=== PATIENT | female | born 1930 | race Caucasian/White ===

== ENCOUNTER 2017-06-14 14:38 | Emergency (ER) | payer MEDICARE ==
[2017-06-14] MEDS ORDERED: NS 0.9% 1000 ML* 1,000 ML IV SCH (15:15)
--- NOTE | 2017-06-14 15:28 | RAD ---
INDICATION: Left knee injury. TECHNIQUE: 4 views of the left knee were obtained. FINDINGS: There appears to be diffuse osteopenia limiting the study. The bones are normal alignment. No joint effusion or fracture is seen. Joint spaces appear maintained. IMPRESSION: NO EVIDENCE FOR FRACTURE, IF THE PATIENT'S SYMPTOMS PERSIST RECOMMEND FOLLOW-UP IMAGING.
[2017-06-14 15:39] LABS: ABS Basophils 0 10^3/ul (0-0.2); ABS Eosinophils 0.1 10^3/ul (0-0.6); ABS Lymphocytes 1.3 10^3/ul (1.0-4.8); ABS Monocytes 0.5 10^3/ul (0-0.8); ABS Neutrophils 3.5 10^3/ul (1.5-7.7); ABS Nucleated RBC 0 10^3/ul; Eosinophil % 2.4 % (0-6); Hematocrit 38 % (35-47); Hemoglobin 12.6 g/dl (12.0-16.0); Lymphocyte % 23.2 % (25-47); Mean Corpuscular HGB Conc 33 g/dl (31-36); Mean Corpuscular Hemoglobin 31 pg (27-31); Mean Corpuscular Volume 93 fL (80-97); Mean Platelet Volume 7 um3 (7.4-10.4); Nucleated Red Blood Cells % 0.1; Platelet Count 204 10^3/ul (150-450); Red Cell Distribution Width 14 % (10.5-15); White Blood Count 5.4 10^3/ul (3.5-10.8)
[2017-06-14 16:05] LABS: INR 1.09 (0.77-1.02)
--- NOTE | 2017-06-14 16:07 | RAD ---
INDICATION: Intracranial injury. Fall. COMPARISON: CT brain June 16, 2011 TECHNIQUE: Noncontrast axial source images were acquired from the skull base to the vertex. FINDINGS: Ventricles/sulci: There is cortical atrophy with compensatory dilatation of the CSF spaces. Brain parenchyma: There is no acute focal parenchymal finding, evidence of intracranial mass, or intracranial mass effect. Intracranial hemorrhage:None. Extra-axial spaces: There are no abnormal extra axial fluid collections or evidence of extra-axial mass. Calvarium: There is no calvarial fracture or other calvarial abnormality. Scalp: There is no evidence of scalp or extracalvarial soft tissue abnormality. Paranasal sinuses/mastoid: There is minor mucosal thickening in the left maxillary antrum The remaining visualized paranasal sinuses and mastoid air cells are clear. Other: None. IMPRESSION: No acute intracranial findings.
--- NOTE | 2017-06-14 16:12 | RAD ---
INDICATION: Fall. Possible neck injury. COMPARISON: Cervical spine June 20, 2012 TECHNIQUE: Noncontrast axial source images was performed from the skull base to the thoracic inlet. Coronal and and sagittal reformatted images were generated. FINDINGS: Vertebrae: There is no fracture or acute focal bony lesion. Alignment: The craniocervical junction appears normal. The cervical vertebrae are normally aligned. Central Canal: There is mild multilevel posterior spondylitic ridge formation and there is bilateral foraminal encroachment related to uncinate process hypertrophy. MR imaging is a more sensitive method to evaluate the canal and foramina. Intervertebral disc spaces: There is degenerative disc disease with narrowing most severe at C3-C4 C5-C6 and C6-C7. Brain: The visualized brain appears unremarkable. Soft tissues: The visualized soft tissue elements of the neck are unremarkable. The prevertebral soft tissues appear normal. The lung apices are clear. IMPRESSION: MULTIPLE OSTEOARTHRITIC CHANGE. NO ACUTE FINDINGS.
--- NOTE | 2017-06-14 16:24 | RAD ---
INDICATION: Traumatic injury sustained in fall. Assess for maxillofacial fracture. COMPARISON: No relevant prior exams available on the [facility] for comparison. TECHNIQUE: Multidetector CT base of the skull through mandible without contrast. Multiplanar reformation. REPORT: Negative for soft tissue hematoma. Unremarkable orbital contents. The orbital and maxillary sinus margins, zygomatic arches, lamina papyracea, base of the maxilla, pterygoid plates, and nasal bones are intact. The senile morphology mandible is intact. Normal temporal mandibular joint alignment. Mild mucosal thickening and trace fluid in the LEFT maxillary sinus. The remaining paranasal sinuses are clear. Clear mastoid air spaces. Atherosclerotic calcification at the bilateral carotid bifurcations. IMPRESSION: 1. No evidence for soft tissue hematoma or maxillofacial fracture. 2. Mild mucosal thickening and trace fluid in the LEFT maxillary sinus.
[2017-06-14 16:40] LABS: EGFR Non-African American 73.3 (>60)
[2017-06-14 17:23] VITALS: BP 174/85
[2017-06-14 17:28] LABS: Urine Appearance Cloudy; Urine Blood Negative (Negative); Urine Color Yellow; Urine Ketones Negative (Negative); Urine Protein Negative (Negative); Urine Specific Gravity 1.017 (1.010-1.030); Urine Urobilinogen Negative (Negative)
--- NOTE | 2017-06-14 18:11 | ED ---
Russ Jade Angela, scribed for Lee Mazariegos MD on 06/14/17 at 1502 . Adult Trauma - HPI Summary HPI Summary: This pt is a 86 y/o female presenting to [facility] via EMS c/o left knee pain and neck pain s/p mechanical fall. reports the pt was on her way to Dr. Mata's office for a follow up when she lost her balance. states the pt was getting out of the car to grab her walker when she lost balance and fell. Pt uses a walker to ambulate at baseline. PMHx includes Parkinson's. She is not on any anticoagulants. Pt's medications include tramadol, meclizine, stool softeners. 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 Negative: Loss of Consciousness - Allergy/Home Medications Allergies/Adverse Reactions: Allergies Allergy/AdvReac Type Severity Reaction Status Date / Time dopamine Allergy Unknown Verified 06/14/17 16:12 Reaction Details PMH/Surg Hx/FS Hx/Imm Hx Endocrine/Hematology History: Denies: Hx Diabetes Cardiovascular History: Denies: Hx Hypertension, Hx Pacemaker/ICD Respiratory History: Reports: Hx Chronic Obstructive Pulmonary Disease (COPD) GI History: Reports: Hx Gastroesophageal Reflux Disease Sensory History: Denies: Hx Hearing Aid Neurological History: Reports: Other Neuro Impairments/Disorders - LBP, Parkinson's Psychiatric History: Denies: Hx Panic Disorder - Surgical History Surgery Procedure, Year, and Place: 1942 THROAT SURGERY REMOVE CYST; 1944 APPENDIX AND PERITONITIS TREATMENT; 1997 GALLBLADDER; 2006 [facility]; 2013 SKIN GRAPH BX THROAT Infectious Disease History: Denies: Traveled Outside the [place] in Last 30 Days - Family History Known Family History: Positive: Cardiac Disease - Mother: fatal [place]. Brother: bypass surgery Negative: Diabetes Family History: Father: throat [place] - Social History Alcohol Use: None Substance Use Type: Reports: None Smoking Status (MU): Never Smoked Tobacco Review of Systems Negative: Fever Musculoskeletal: Other - left knee pain, neck pain Positive: Bruising - under left eye All Other Systems Reviewed And Are Negative: Yes Physical Exam - Summary Physical Exam Summary: General: well-appearing, no pain distress Skin: warm, color reflects adequate perfusion, dry Head: normal Eyes: EOMI, SHAWNA ENT: normal Neck: supple, nontender Respiratory: CTA, breath sounds present Cardiovascular: RRR Abdomen: soft, nontender Bowel: present Musculoskeletal: strength/ROM intact. Skin tear on left knee. Neurological: normal, sensory/motor intact, A&O x3 Psychological: affect/mood appropriate Triage Information Reviewed: Yes Vital Signs On Initial Exam: Initial Vitals BP 179/58 06/14/17 15:04 Vital Signs Reviewed: Yes - Lida Coma Scale Best Eye Response: 4 - Spontaneous Best Motor Response: 6 - Obeys Commands Best Verbal Response: 5 - Oriented Coma Scale Total: 15 Diagnostics - Vital Signs Vital Signs Temp Pulse Resp BP Pulse Ox 06/14/17 17:20 97.4 F 65 20 174/85 94 06/14/17 17:00 58 100 06/14/17 16:02 59 99 06/14/17 15:37 99 06/14/17 15:11 42 88 06/14/17 15:06 98.3 F 50 16 178/60 96 06/14/17 15:04 179/58 - Laboratory Lab Results: Lab Results 06/14/17 06/14/17 06/14/17 Range/Units 15:28 15:28 15:28 WBC 5.4 (3.5-10.8) 10^3/ul RBC 4.10 (4.0-5.4) 10^6/ul Hgb 12.6 (12.0-16.0) g/dl Hct 38 (35-47) % MCV 93 (80-97) fL MCH 31 (27-31) pg MCHC 33 (31-36) g/dl RDW 14 (10.5-15) % Plt Count 204 (150-450) 10^3/ul MPV 7 L (7.4-10.4) um3 Neut % (Auto) 64.1 (38-83) % Lymph % (Auto) 23.2 L (25-47) % Crockett % (Auto) 9.5 H (0-7) % Eos % (Auto) 2.4 (0-6) % Baso % (Auto) 0.8 (0-2) % Absolute Neuts (auto) 3.5 (1.5-7.7) 10^3/ul Absolute Lymphs (auto) 1.3 (1.0-4.8) 10^3/ul Absolute Monos (auto) 0.5 (0-0.8) 10^3/ul Absolute Eos (auto) 0.1 (0-0.6) 10^3/ul Absolute Basos (auto) 0 (0-0.2) 10^3/ul Absolute Nucleated RBC 0 10^3/ul Nucleated RBC % 0.1 INR (Anticoag Therapy) 1.09 H (0.77-1.02) APTT 35.4 (26.0-36.3) seconds Sodium 139 (133-145) mmol/L Potassium 4.2 (3.5-5.0) mmol/L Chloride 103 (101-111) mmol/L Carbon Dioxide 30 (22-32) mmol/L Anion Gap 6 (2-11) mmol/L BUN 17 (6-24) mg/dL Creatinine 0.75 (0.51-0.95) mg/dL Est GFR ( Amer) 94.2 (>60) Est GFR (Non-Af Amer) 73.3 (>60) BUN/Creatinine Ratio 22.7 H (8-20) Glucose 108 H (70-100) mg/dL Calcium 9.5 (8.6-10.3) mg/dL Total Bilirubin 0.40 (0.2-1.0) mg/dL AST 14 (13-39) U/L ALT 9 (7-52) U/L Alkaline Phosphatase 69 (34-104) U/L C-Reactive Protein < 1.00 (< 5.00) mg/L Total Protein 7.3 (6.4-8.9) g/dL Albumin 4.1 (3.2-5.2) g/dL Globulin 3.2 (2-4) g/dL Albumin/Globulin Ratio 1.3 (1-3) Urine Color Urine Appearance Urine pH (5-9) Ur Specific Axis (1.010-1.030) Urine Protein (Negative) Urine Ketones (Negative) Urine Blood (Negative) Urine Nitrate (Negative) Urine Bilirubin (Negative) Urine Urobilinogen (Negative) Ur Leukocyte Esterase (Negative) Urine WBC (Auto) (Absent) Urine RBC (Auto) (Absent) Ur Squamous Epith Cells (Absent) Urine Bacteria (Absent) Urine Glucose (Negative) Urine Ascorbic Acid (Negative) 06/14/17 Range/Units 16:50 WBC (3.5-10.8) 10^3/ul RBC (4.0-5.4) 10^6/ul Hgb (12.0-16.0) g/dl Hct (35-47) % MCV (80-97) fL MCH (27-31) pg MCHC (31-36) g/dl RDW (10.5-15) % Plt Count (150-450) 10^3/ul MPV (7.4-10.4) um3 Neut % (Auto) (38-83) % Lymph % (Auto) (25-47) % Crockett % (Auto) (0-7) % Eos % (Auto) (0-6) % Baso % (Auto) (0-2) % Absolute Neuts (auto) (1.5-7.7) 10^3/ul Absolute Lymphs (auto) (1.0-4.8) 10^3/ul Absolute Monos (auto) (0-0.8) 10^3/ul Absolute Eos (auto) (0-0.6) 10^3/ul Absolute Basos (auto) (0-0.2) 10^3/ul Absolute Nucleated RBC 10^3/ul Nucleated RBC % INR (Anticoag Therapy) (0.77-1.02) APTT (26.0-36.3) seconds Sodium (133-145) mmol/L Potassium (3.5-5.0) mmol/L Chloride (101-111) mmol/L Carbon Dioxide (22-32) mmol/L Anion Gap (2-11) mmol/L BUN (6-24) mg/dL Creatinine (0.51-0.95) mg/dL Est GFR ( Amer) (>60) Est GFR (Non-Af Amer) (>60) BUN/Creatinine Ratio (8-20) Glucose (70-100) mg/dL Calcium (8.6-10.3) mg/dL Total Bilirubin (0.2-1.0) mg/dL AST (13-39) U/L ALT (7-52) U/L Alkaline Phosphatase (34-104) U/L C-Reactive Protein (< 5.00) mg/L Total Protein (6.4-8.9) g/dL Albumin (3.2-5.2) g/dL Globulin (2-4) g/dL Albumin/Globulin Ratio (1-3) Urine Color Yellow Urine Appearance Cloudy Urine pH 6.0 (5-9) Ur Specific Axis 1.017 (1.010-1.030) Urine Protein Negative (Negative) Urine Ketones Negative (Negative) Urine Blood Negative (Negative) Urine Nitrate Positive A (Negative) Urine Bilirubin Negative (Negative) Urine Urobilinogen Negative (Negative) Ur Leukocyte Esterase Trace A (Negative) Urine WBC (Auto) 1+(6-10/hpf) A (Absent) Urine RBC (Auto) Trace(0-2/hpf) (Absent) Ur Squamous Epith Cells Present A (Absent) Urine Bacteria 3+ A (Absent) Urine Glucose Negative (Negative) Urine Ascorbic Acid * A (Negative) Result Diagrams: 06/14/17 15:28 06/14/17 15:28 Lab Statement: Any lab studies that have been ordered have been reviewed, and results considered in the medical decision making process. - Radiology Left knee XR Xray Interpretation: No Acute Changes - IMPRESSION: No evidence for fracture, if the patient's symptoms persist recommend follow-up imaging. Dr. Mazariegos has reviewed this radiology report. Radiology Interpretation Completed By: Radiologist - CT Brain CT CT Interpretation: No Acute Changes - IMPRESSION: No acute intracranial findings. Dr. Mazariegos has reviewed this radiology report. CT Interpretation Completed By: Radiologist Maxillofacial CT CT Interpretation: No Acute Changes - IMPRESSION: 1. No evidence for soft tissue hematoma or maxillofacial fracture. 2. Mild mucosal thickening and trace fluid in the LEFT maxillary sinus. Dr. Mazariegos has reviewed this radiology report. CT Interpretation Completed By: Radiologist Cervical spine CT CT Interpretation: No Acute Changes - IMPRESSION: Multiple osteoarthritic change. No acute findings. Dr. Mazariegos has reviewed this radiology report. CT Interpretation Completed By: Radiologist - EKG 15:16 Cardiac Rate: NL EKG Rhythm: Sinus Rhythm - at [address] Segment: Normal Ectopy: None EKG Interpretation: LVH. Re-Evaluation - Re-Evaluation First Eval Re-Evaluation Time: 17:02 Comment: I reviewed the lab and imaging results with the pt and . Pt will be discharged home. Adult Trauma Course/Dx - Course Course Of Treatment: Left knee XR is negative for fracture or dislocation. Brain CT is negative. Cervical spine CT is negative. Maxillofacial CT is negative for fracture. Medications reviewed. Allergies noted. BP noted and advised to follow up with PCP. NO SX OF UTI. WILL AWAIT CULTURES TO DETERMINE TREATMENT. DISCUSSED RESULTS WITH PATIENT AND HER FAMILY. F/U PMD; RETURN IF WORSE. - Diagnoses Provider Diagnoses: Head injury, Cervical strain, Contusion of knee, left, Skin tear of left lower leg without complication Discharge - Discharge Plan Condition: Stable Disposition: HOME Patient Education Materials: Cervical Strain (ED), Head Injury (ED), Knee Pain (ED), Skin Tear (ED) Referrals: Tito Jay MD [Primary Care Provider] - Additional Instructions: FOLLOW UP WITH YOUR DOCTOR. RETURN TO THE EMERGENCY DEPARTMENT FOR ANY WORSENING OF YOUR CONDITION OR QUESTIONS OR CONCERNS. YOUR BLOOD PRESSURE WAS ELEVATED TODAY; FOLLOW UP WITH YOUR PRIMARY CARE DOCTOR WITHIN ONE WEEK. The documentation as recorded by the Russ muñoz Angela accurately reflects the service I personally performed and the decisions made by me, Lee Mazarigeos MD.
== END 2017-06-14 17:20 | disposition home or self-care (01) ==
LOC: ED 14:38
DX: S09.90XA Unspecified injury of head, initial encounter (principal); S80.02XA Contusion of left knee, initial encounter; S00.12XA Contusion of left eyelid and periocular area, initial encounter; S81.812A Laceration without foreign body, left lower leg, initial encounter; S16.1XXA Strain of muscle, fascia and tendon at neck level, initial encounter; W19.XXXA Unspecified fall, initial encounter; Y92.9 Unspecified place or not applicable
CPT/HCPCS: 36415; 70450; 70486; 72125; 80053; 81003; 81015; 85025; 85610; 85730; 86140; 87077; 87086; 87186; 93005; 99282

== ENCOUNTER 2017-08-24 09:52 | Inpatient (IN) | payer MEDICARE ==
--- NOTE | 2017-08-24 11:38 | RAD ---
INDICATION: Fall. Left hip pain COMPARISON: Left hip April 28, 2013 TECHNIQUE: An AP view of the pelvis and AP views of the hip in neutral and abducted position were obtained FINDINGS: Bones: There is a mildly distracted intertrochanteric fracture of the left femur. No other acute bony findings are evident. Joint spaces: The hips articulate normally. The joint spaces are preserved. SI joints/symphysis: The SI joints and symphysis are intact. Other: None IMPRESSION: INTRATROCHANTERIC FRACTURE LEFT FEMUR
--- NOTE | 2017-08-24 11:40 | RAD ---
INDICATION: Left rib pain COMPARISON: None TECHNIQUE: Multiple views of the ribs were obtained. FINDINGS: Bones: There is osteopenia. There is radiographically apparent rib fracture. LUNGS: The lungs are clear. There is no pneumothorax. Pleural spaces: There is no evidence of hemothorax. Other: None IMPRESSION: NO ACUTE RIB FRACTURE IS SEEN.
--- NOTE | 2017-08-24 11:41 | RAD ---
INDICATION: Left elbow pain COMPARISON: None TECHNIQUE: AP, lateral, and oblique views were obtained. FINDINGS: There is osteopenia. There is no acute fracture. The elbow articulates normally. IMPRESSION: NO ACUTE FRACTURE.
--- NOTE | 2017-08-24 11:42 | RAD ---
INDICATION: Fall COMPARISON: Chest x-ray February 01, 2017 TECHNIQUE: PA and lateral dual-energy views were obtained. FINDINGS: Bones/Soft Tissues: There are no acute bony findings. There is osteopenia Cardiomediastinal: The cardiomediastinal silhouette is normal. Lungs: There are no infiltrates. There is hyperinflation with chronic interstitial change Pleura: There are no pleural effusions. Other: None IMPRESSION: HYPERINFLATION WITH CHRONIC INTERSTITIAL CHANGE.
[2017-08-24 12:29] LABS: EGFR Non-African American 74.2 (>60)
[2017-08-24 12:50] LABS: ABS Basophils 0 10^3/ul (0-0.2); ABS Eosinophils 0 10^3/ul (0-0.6); ABS Lymphocytes 0.9 10^3/ul (1.0-4.8); ABS Monocytes 0.9 10^3/ul (0-0.8); ABS Nucleated RBC 0 10^3/ul; Eosinophil % 0.1 % (0-6); Hematocrit 34 % (35-47); Hemoglobin 11.3 g/dl (12.0-16.0); Mean Corpuscular HGB Conc 33 g/dl (31-36); Mean Corpuscular Hemoglobin 31 pg (27-31); Mean Corpuscular Volume 94 fL (80-97); Mean Platelet Volume 7.8 um3 (7.4-10.4); Nucleated Red Blood Cells % 0; Platelet Count 187 10^3/ul (150-450); Red Blood Count 3.67 10^6/ul (4.0-5.4); Red Cell Distribution Width 14 % (10.5-15); White Blood Count 9.7 10^3/ul (3.5-10.8)
[2017-08-24] MEDS ORDERED: Morphine VIAL* 4 MG/ML VIAL (1 ml vial) IV ONE (13:14)
[2017-08-24] MEDS ORDERED: Enoxaparin(*) 40 MG/0.4 ML SYR SUBCUT SCH (14:00)
[2017-08-24] MEDS: Meclizine TAB* 12.5 MG PO SCH ×2 (14:55→20:02)
[2017-08-24] MEDS: Sertraline* 25 MG TAB PO SCH ×2 (14:55→20:02)
[2017-08-24] MEDS: LORazepam INJ* 2 MG/ML 1 ML VIAL IV PUSH PRN (15:03)
[2017-08-24] MEDS: Ropinirole TAB* 0.5 MG TAB PO SCH ×2 (16:33→21:52)
[2017-08-24] MEDS: NS 0.9% 1000 ML* 1,000 ML IV SCH ×2 (16:43→21:52)
[2017-08-24 17:06] LABS: Urine Appearance Cloudy; Urine Blood Negative (Negative); Urine Color Yellow; Urine Ketones Negative (Negative); Urine Protein 1+(30 mg/dL) (Negative); Urine Specific Gravity 1.018 (1.010-1.030); Urine Urobilinogen Negative (Negative)
--- NOTE | 2017-08-24 19:58 | HP ---
CC: Tito Jay MD * ADMISSION HISTORY AND PHYSICAL: DATE OF ADMISSION: 08/24/17 PRIMARY CARE PHYSICIAN: Tito Jay MD ATTENDING PHYSICIAN: Lisa Rosado MD * (DICTATED BY KRISTINA GARCIA NP) CHIEF COMPLAINT: Fall with hip pain and inability to ambulate and transfer. HISTORY OF PRESENT ILLNESS: This is an 87-year-old female patient with a longstanding history of dementia and parkinsonism. Per the family, the patient' s is her primary care provider, lives alone at home with her and provides most of her assistive services. The patient's family states that she can transfer with assistance only. She is a 1 person assist and normally is seated in a chair, lying in the bed and does use a motorized stair lift as well. The patient is not usually verbal at baseline. Does have some purposeless movements also at baseline; however, the patient can sometimes make her needs known and apparently in the middle of the night the patient had to get up to go to the bathroom and try to get up by herself and step on the floor. She was evaluated by EMS, but at that time they did not see any overt angulation or issues. They were told to call EMS again if there are any further problems or see her primary care doctor and in the morning when the patient woke up she was not able to be moved at all and was in a significant amount of pain, was transferred to the emergency department for evaluation. ER imaging shows left intertrochanteric fracture. Rest of her workup is essentially negative. PAST MEDICAL HISTORY: Significant for dementia, Parkinson's disease, GERD, and COPD. PAST SURGICAL HISTORY: Significant for bowel surgery, excision of a lesion on the throat, cholecystectomy, and had as a child appendicitis with peritonitis. MEDICATIONS AT HOME: Include: 1. Biotin 1 mg daily. 2. Meclizine 12.5 mg 3 times a day. 3. Singulair 10 mg daily. 4. Multivitamin 1 tablet daily. 5. Ropinirole 0.5 mg 3 times a day. 6. Sertraline 25 mg 3 times a day. 7. Venlafaxine 75 mg in the morning. 8. PreserVision AREDS2 softgels 1 cap p.o. daily. 9. Tramadol 50 mg q.6 hours as needed. ALLERGIES: The patient has allergy to DOPAMINE. Family is not able to articulate what the allergy is. FAMILY HISTORY: Both parents with cardiac disease and a brother with coronary artery bypass graft. SOCIAL HISTORY: The patient does not smoke, does not drink alcohol, and there is no illicit drug use. Again, her , Mr. Ascencio, is her next of kin and her healthcare proxy. REVIEW OF SYSTEMS: Unable to obtain secondary to condition, although the patient is grimacing with any kind of pressure to the left hip. PHYSICAL EXAMINATION GENERAL: The patient is alert, very frail and thin looking; however, she is otherwise healthy looking. She appears mildly agitated, but no serious distress. VITAL SIGNS: Blood pressure 132/79, heart rate 88, respiratory rate 14, room air saturation 93%, temperature is 97.2. HEENT: The patient is atraumatic, normocephalic. PERRLA with nonicteric sclerae. Dentition: The patient is edentulous. She has full upper and lower dentures, which are not present. Oral mucosa is moist. Tongue is midline. NECK: Supple, nontender. No JVD noted. No carotid bruits auscultated. LUNGS: Clear bilaterally to auscultation with no wheezing, rhonchi, or rales. CARDIOVASCULAR: S1 and S2 present. No murmurs, gallops, or rubs noted. Rate and rhythm are regular. ABDOMEN: Soft, nontender, and nondistended. No organomegaly noted and positive bowel sounds in all 4 quadrants. MUSCULOSKELETAL: There is no clubbing, no cyanosis, no edema. She does not have any bruising or ecchymosis noted. She is tender up across the left hip and into the groin. She has +2 distal pulses palpable and intact. NEUROLOGIC: She is confused at baseline. Has difficulty following commands and is exhibiting some purposeless movements. SKIN: Warm, dry, intact. No bruises, lesions, sclerosis noted. DIAGNOSTIC STUDIES/LAB DATA: WBC is 9.7, RBC is 3.67, hemoglobin 11.3, hematocrit 34, platelets 187,000. Sodium 138, potassium 4.2, chloride 101, CO2 of 31, BUN 17, creatinine 0.74, GFR 74.2, glucose 126, calcium 8.8. AST 18, ALT 17, alk phos 66. CRP is 1.82. Total creatine kinase 89, protein 6.6, albumin 3.9, globulin 2.7. Imaging: Chest x-ray shows hyperinflation with no acute cardiopulmonary disease. X-rays of the elbows and ribs show no acute fracture. Imaging of the hip and pelvis though reveals an intertrochanteric fracture of the left femur. IMPRESSION: This is an 87-year-old female patient with a history of dementia and Parkinson disease, who per the family has had considerable decline over the past 6 months and has had several falls, who presents to emergency department today status post fall with a left intertrochanteric fracture. PLAN: The patient has been admitted to medical service. We are being requested to provide medical clearance and guidance regarding potential surgical plan of care. DIAGNOSES: 1. Mechanical fall with left intertrochanteric hip fracture. Dr. Sharif from the orthopedic service has already been consulted. If the patient can be cleared for surgery, she may likely go tomorrow. For DVT prophylaxis, we will place the patient on Lovenox. Pain control with morphine q.4 hours as needed. 2. For her Parkinson's and dementia, we will continue her regularly scheduled medications and her SSRI and SNRI. We will also give her low dose Ativan q.6 hours as needed for any additional agitation as the patient is outside of her environment and seems to be becoming increasingly anxious. 3. For her history of chronic obstructive pulmonary disease, she is on Singulair daily. Her lungs sound clear essentially at this time. I do not feel that she needs albuterol or nebulizer treatments at this time; however, I am not sure how well she would be able to participate in incentive spirometry pre and postoperatively. Her urinalysis in the past showed urine culture with Citrobacter that was treated. Urine culture is currently pending. At this point, we would like to see what Orthopedics is thinking in terms of surgical plan of care. Her risk factors because of her age and general debility I feel are higher risks. Even though she has no documented history of cardiac disease, she does have a strong family history. At this point, we will do an echocardiogram to assess left ventricular function and see if there are any anomalous issues or acute pathology noted there. We will have a discussion with Orthopedics after the echo is completed. Her EKG today is no different than her EKG in May, again showing some LVH, but otherwise sinus rhythm with no ST segment elevations and no further ectopy noted, does not appear to be any ischemia. I had an extensive conversation with the family regarding outcomes of the surgery because the patient generally does not ambulate unassisted at baseline. Surgery at this point would be for pain. I do not know that we will be able to get her ambulating better after the surgery considering her Parkinson's and her inability to ambulate unassisted already exists; however, given pain and also the fact that the plan was in speaking with the daughter that her parents were supposed to be moving to [place], [place], in the next 3 weeks. Again, I think it remains to be seen how well the patient would heal from this and whether they would be able to fly to [place] next month as they had originally planned. This is something that I think Case Management can also assist the family with as we work through this process. The rest of the patient's course will be determined by further diagnostics, laboratories, and any other input from other providers warranted during this admission. Again, after evaluating the full cardiac workup, we will determine her CV risk for surgery if the family wishes to proceed at that time. KRISTINA GARCIA, NAVNEET [id number]/CPS #: [id number] DOMINIQUE
[2017-08-24] MEDS: Morphine VIAL* 4 MG/ML VIAL (1 ml vial) IV PRN (20:02)
[2017-08-25] MEDS: Morphine VIAL* 4 MG/ML VIAL (1 ml vial) IV PRN (02:42)
[2017-08-25] MEDS: LORazepam INJ* 2 MG/ML 1 ML VIAL IV PUSH PRN (05:14)
[2017-08-25 05:30] LABS: INR 1.26 (0.77-1.02)
[2017-08-25] MEDS ORDERED: Famotidine IV* 10 MG/ML 2 ML (20 mg) IV ONE (06:00)
[2017-08-25] MEDS: Multivitamins/Minerals TAB PO SCH (08:21)
[2017-08-25] MEDS: Ropinirole TAB* 0.5 MG TAB PO SCH ×3 (08:21→22:18)
[2017-08-25] MEDS: Venlafaxine EXT RELEASE CAP* 75 MG PO SCH (08:21)
[2017-08-25] MEDS: Meclizine TAB* 12.5 MG PO SCH ×3 (08:21→22:18)
[2017-08-25] MEDS: Montelukast Sodium TAB* 10 MG PO SCH (08:21)
[2017-08-25] MEDS: Sertraline* 25 MG TAB PO SCH ×3 (08:21→22:18)
--- NOTE | 2017-08-25 08:58 | PN ---
Hospitalist Progress Note Date of Service: 08/25/[address] hSarif of orthopedic surgery and mentioned he would like to take patient to the OR and requests if pt's pre-operative eval can be expedited. Saw pt and a ybarra note will be dictated later. Unfortunately, has PD dementia and does not speak Danish with no family at bedside. H&P, EKG, labs, and imaging reviewed and pt has a calculated RCRI =1 for a high risk surgical procedure. There is no active medical issues at this time. However, given significant family history of cardiac disease, an echocardiogram was ordered. Have tried to page Dr. Meza, however, spoke with Dr. Sharif to speak with her directly given time limitations as to planned surgery. Will defer.
--- NOTE | 2017-08-25 10:06 | ECHO ---
Patient: [facility] Rec#: [id number] : 1930 Date: 08/25/2017 Age: 87y Height: 167.6 cm / 66.0 in Weight: 49.9 kg / 110.0 lbs Sex: F BSA: 1.6 Room#: 338 Admit Date#: 08/24/2017 Type: Inpatient Referring: Annalee Appiah Reading: Irma Meza MD Jury Consultant: Lisa Sullivan RN RDCS CC: Tito Jay MD Transthoracic Echocardiogram Indication: Abnormal EKG BP: 140/57 HR: 82 Rhythm: NSR Findings History: Parkinson's disease, current left hip fracture Technical Comments: The study quality is fair. The study was technically limited due to the patient's inability to lay in the left lateral decubitus position. Completed at 0835. Left Ventricle: The left ventricular chamber size is normal. There is increased basal septal hypertrophy noted without evidence of an increased gradient across the left ventricular outflow tract. Mild septal dysychrony. Diastolic jet into the RV at the level of the membranous septum seen on 4 chamber view but not confirmed on short axis view (possible small VSD), no evidence clinically significant. There is normal left ventricular systolic function. The estimated ejection fraction is 55-60%. Abnormal left ventricular diastolic filling is observed, consistent with impaired relaxation. Left Atrium: The left atrial chamber size is normal. Right Ventricle: The right ventricular chamber size and systolic function are within normal limits. Right Atrium: The right atrial cavity size is normal. Aortic Valve: The aortic valve is trileaflet. The aortic valve leaflets are mildly thickened. There is aortic annular calcification. There is mild to moderate aortic regurgitation. There is no evidence of aortic stenosis. Mitral Valve: The mitral valve leaflets are mildly thickened. There is trace to mild mitral regurgitation. There is no evidence of mitral stenosis. Tricuspid Valve: The tricuspid valve leaflets are normal. There is mild to moderate tricuspid regurgitation. The right ventricular systolic pressure is estimated at 44 mmHg. There is evidence of mild to moderate pulmonary hypertension. There is no tricuspid stenosis. Pulmonic Valve: The pulmonic valve appears normal. There is trace to mild pulmonic regurgitation. There is no pulmonic stenosis. Pericardium: There is no significant pericardial effusion. Aorta: There is no dilatation of the ascending aorta. There is no dilatation of the aortic arch. There is no dilation of the aortic root. Pulmonary Artery: The main pulmonary artery appears normal. Venous: The inferior vena cava is not visualized. Conclusions The left ventricular chamber size is normal. Basilar septal hypertrophy, mild dysynchrony. The estimated ejection fraction is 55-60%. Abnormal left ventricular diastolic filling is observed, consistent with impaired relaxation. The right ventricular chamber size and systolic function are within normal limits. The aortic valve is trileaflet, the leaflets are mildly thickened. There is mild to moderate aortic regurgitation, central jet. There is trace to mild mitral regurgitation. There is mild to moderate tricuspid regurgitation. There is evidence of mild to moderate pulmonary hypertension at 44 mmHg. No prior echo to compare. Measurements Name Value Normal Range RVDdMajor (2D) 2.7 cm (2.2 - 4.4) RAd ISD 4CH 3.8 cm (3.4 - 4.9) RA (A4C)W 3.5 cm (2.9 - 4.6) IVSd (2D) 0.9 cm (0.6 - 1) LVPWd (2D) 0.9 cm (0.6 - 1) LVIDd (2D) 3.9 cm (3.6 - 5.4) LVIDs (2D) 2.7 cm - LV FS (2D) 31 % (25 - 45) Aortic Annulus 2.1 cm (1.4 - 2.6) Ao root diameter (2D) 3.2 cm (2.1 - 3.5) Ascending Ao 3.2 cm (2.1 - 3.4) Aortic arch 2.5 cm (1.8 - 3.4) LA dimension (AP) 2D 2.9 cm (2.3 - 3.8) LAd ISD 4CH 4.2 cm (2.9 - 5.3) LA ISD 4CH W 3.5 cm (2.5 - 4.5) Name Value Normal Range LA ESV SP 4CH (A/L) 51 ml - LA ESV SP 2CH (A/L) 27 ml - LA ESV BP (A/L) 40 ml - LA ESV BP (A/L) index 26 ml/m2 - LA ESV SP 4CH (MOD) 48 ml - LA ESV SP 2CH (MOD) 24 ml - Name Value Normal Range MV E-wave Vmax 0.73 m/sec - MV deceleration time 312 msec - MV A-wave Vmax 1.1 m/sec - MV E:A ratio 0.64 ratio - LV septal e' Vmax 0.07 m/sec - LV lateral e' Vmax 0.08 m/sec - LV E:e' septal ratio 10.4 ratio - LV E:e' lateral ratio 9.1 ratio - Name Value Normal Range AV Vmax 1.6 m/sec - AV VTI 32.9 cm - AV peak gradient 9.8 mmHg - AV mean gradient 6.4 mmHg - LVOT Vmax 1.1 m/sec - LVOT VTI 23.4 cm - LVOT peak gradient 5.1 mmHg - LVOT mean gradient 3.1 mmHg - AR PHT 362 msec - DREA Vmax 0.48 m/sec - Name Value Normal Range TR Vmax 3 m/sec - TR peak gradient 36 mmHg - RAP 8 mmHg - RVSP 44 mmHg - Name Value Normal Range PV Vmax 0.75 m/sec -
[2017-08-25] MEDS ORDERED: ceFAZolin 2 GM PREMIX (*) 2 GM/50 ML BAG IVPB ONE (10:35)
[2017-08-25] MEDS ORDERED: KETAMINE HCL* 50 MG/ML 10 ML VIAL ONE (11:03)
[2017-08-25] MEDS ORDERED: Midazolam* 1 MG/ML 2 ML VIAL (2 MG) ONE (11:10)
[2017-08-25] MEDS ORDERED: fentaNYL* 50 MCG/ML 2 ML VIAL (100 MCG VIAL) ONE ×2 (11:15→12:49)
[2017-08-25] MEDS ORDERED: Bupivacaine 0.5% SDV PF* 30ML VIAL ONE (11:39)
[2017-08-25] MEDS ORDERED: DiMENhydriNATE IV* 50 MG/ML VIAL ONE (11:54)
[2017-08-25] MEDS ORDERED: Ketorolac INJ* 30 MG/ML 1 ML VIAL ONE (11:54)
[2017-08-25] MEDS ORDERED: Propofol* 10 MG/ML 20 ML BTL IV PUSH ONE (11:54)
[2017-08-25] MEDS ORDERED: EPHEDrine (Pressors)* 50 MG/ML VIAL ONE (11:54)
[2017-08-25] MEDS ORDERED: Dexamethasone IV* 4 MG/ML 1 ML (4 MG) ONE (11:54)
[2017-08-25] MEDS ORDERED: Lidocaine 2% PF * 5 ML VIAL ONE (11:54)
[2017-08-25] MEDS ORDERED: Ondansetron INJ* 2 MG/ML VIAL IV PRN (13:40)
[2017-08-25] MEDS ORDERED: HYDROmorphone INJ* 1 MG/ML CARPUJECT SYRINGE IV PRN (13:40)
[2017-08-25] MEDS ORDERED: Acetaminophen IV 1GM/100ML * 10 MG/ML VIAL IVPB ONE (13:40)
[2017-08-25] MEDS ORDERED: Naloxone* 0.4 MG/ML 1 ML VIAL IV PRN (13:40)
[2017-08-25] MEDS ORDERED: Acetaminophen IV 1GM/100ML * 100 ML ONE (14:12)
--- NOTE | 2017-08-25 15:31 | RAD ---
INDICATION: Traumatic left hip fracture operative reduction and internal fixation. COMPARISON: Correlation is made with a prior x-ray study of the left hip from August 24, 2017. TECHNIQUE: 73.1 seconds of intermitted fluoroscopic were provided and 4 spot images of the left hip were obtained in the operating room. FINDINGS: The films demonstrate placement of a femoral head nail and sliding sideplate transfixed with multiple screws spanning the intertrochanteric fracture of the left femur. IMPRESSION: INTRAOPERATIVE CONTROL FILMS. CPT II Codes: G9500
--- NOTE | 2017-08-25 15:44 | PN ---
Hospitalist Progress Note Date of Service: 08/25/17 Pt seen and examined. Meds and labs reviewed. Pt was seen and examined earlier this AM. Please see my earlier note dated today for details. ROS: Denied ELIAS/dizziness, F/C, N/V, CP, SOB, increased cough, sputum production , abd pain, diarrhea, constipation, dysuria, myalgias, arthralgias, throat pain , and new skin lesions. The rest of the 14 point ROS are unremarkable. PHYSICAL EXAM: GEN APPEARANCE: Awake, not oriented, poor command of [place] language HEENT: NC/AT, PERRLA, moist oral mucosa, (-) throat erythema NECK: Soft, supple, (-) cervical LAD, (-)JVD HEART: S1S2 WNL, RRR, No MRG CHEST: CTA, BL, GAE, No W/R/R ABD: Soft, ND/NT, NABS 4x Q EXT: No C/C/E SKIN: Warm to touch PSYCH: No active psychosis, hallucinations, depression, SI/HI ASSESSMENT AND PLAN: #Mechanical fall w/left intertrochanteric femoral fracture: -Spoke with Dr. Meza earlier upon updating Dr. Sharif and per Dr. Meza at that time, there are no findings in echocardiogram that would preclude planned surgery by family and orthopedics similar to the impression previously detailed based on physical exam and limited history -2D echo reveals: Impaired relaxation of left ventricle with EF of 55-60% -Final pre-op eval discussed with family and Dr. Sharif: Pt has low cardiac risk, with RCRI =1 for a high risk surgical procedure #PD Dementia: -Will continue watchful waiting -Not currently agitated nor behavioral #COPD, not in acute exacerbation: -Continue watchful waiting -Continue Montelukast #DVTp: -Decreased dose of Lovenox due to advanced age #Dispo: -For PT eval
[2017-08-25] MEDS: Enoxaparin(*) 30 MG/0.3 ML SYR SUBCUT SCH (16:15)
[2017-08-25] MEDS ORDERED: Ondansetron 40 MG VIAL* 2 MG/ML 20 ML VIAL IV PRN (16:38)
[2017-08-25 17:57] LABS: ABS Basophils 0 10^3/ul (0-0.2); ABS Eosinophils 0 10^3/ul (0-0.6); ABS Lymphocytes 0.4 10^3/ul (1.0-4.8); ABS Monocytes 0.7 10^3/ul (0-0.8); ABS Neutrophils 9.2 10^3/ul (1.5-7.7); ABS Nucleated RBC 0 10^3/ul; Eosinophil % 0 % (0-6); Hematocrit 19 % (35-47); Hemoglobin 6.2 g/dl (12.0-16.0); INR 1.48 (0.77-1.02); Lymphocyte % 3.5 % (25-47); Mean Corpuscular HGB Conc 33 g/dl (31-36); Mean Corpuscular Hemoglobin 31 pg (27-31); Mean Corpuscular Volume 94 fL (80-97); Mean Platelet Volume 7.6 um3 (7.4-10.4); Nucleated Red Blood Cells % 0; Platelet Count 120 10^3/ul (150-450); Red Blood Count 2.03 10^6/ul (4.0-5.4); Red Cell Distribution Width 15 % (10.5-15); White Blood Count 10.2 10^3/ul (3.5-10.8)
[2017-08-25 18:13] LABS: EGFR Non-African American 87.8 (>60)
[2017-08-26 08:44] LABS: ABS Basophils 0 10^3/ul (0-0.2); ABS Eosinophils 0 10^3/ul (0-0.6); ABS Monocytes 1.3 10^3/ul (0-0.8); ABS Neutrophils 7.5 10^3/ul (1.5-7.7); ABS Nucleated RBC 0 10^3/ul; Eosinophil % 0.1 % (0-6); Hematocrit 30 % (35-47); Lymphocyte % 10.1 % (25-47); Mean Corpuscular HGB Conc 34 g/dl (31-36); Mean Corpuscular Hemoglobin 30 pg (27-31); Mean Corpuscular Volume 90 fL (80-97); Mean Platelet Volume 8.1 um3 (7.4-10.4); Nucleated Red Blood Cells % 0; Platelet Count 109 10^3/ul (150-450); Red Cell Distribution Width 17 % (10.5-15); White Blood Count 9.7 10^3/ul (3.5-10.8)
[2017-08-26 08:50] LABS: INR 1.39 (0.77-1.02)
[2017-08-26] MEDS: Ropinirole TAB* 0.5 MG TAB PO SCH ×3 (08:52→22:23)
[2017-08-26] MEDS: Acetaminophen TAB* 325 MG PO PRN ×2 (08:53→13:19)
[2017-08-26] MEDS: Venlafaxine EXT RELEASE CAP* 75 MG PO SCH (08:59)
[2017-08-26] MEDS: Sertraline* 25 MG TAB PO SCH ×3 (08:59→22:23)
[2017-08-26] MEDS: Meclizine TAB* 12.5 MG PO SCH ×3 (09:00→22:23)
[2017-08-26] MEDS: Multivitamins/Minerals TAB PO SCH (09:01)
[2017-08-26] MEDS: Montelukast Sodium TAB* 10 MG PO SCH (09:01)
[2017-08-26 09:03] LABS: EGFR Non-African American 92.8 (>60)
--- NOTE | 2017-08-26 12:37 | OP ---
DATE OF OPERATION: 08/25/17 - ROOM #338 DATE OF : 30 SURGEON: Nasir Sharif MD. CIGARETTE MAKING MACHINE OPERATOR: SANCHEZ Valdes. ANESTHESIOLOGIST: Dr. Puga. ANESTHESIA: General. PRE-OP DIAGNOSIS: Comminuted intertrochanteric fracture of the left hip. POST-OP DIAGNOSIS: Comminuted intertrochanteric fracture of the left hip. OPERATIVE PROCEDURE: Open reduction internal fixation with compression screw and side plate. BRIEF CLINICAL NOTE: Ms. Ascencio is an 87-year-old female who is described as a minimal ambulator, household only, actually bed to transfer, who became disoriented in the middle of the night and tried to get up and fell out of the bed and sustained a fracture to her left hip. She was appropriately transferred to the [facility] Emergency Room where appropriate films verified that the patient had an intertrochanteric fracture of the left hip. The risks and benefits of operative versus nonoperative intervention were thoroughly discussed with the patient's family at length and due to the morbidity concerns, the patient was scheduled for an open reduction internal fixation with compression screw and side plate. I received a favorable evaluation from hospitalist service to which she is admitted to and cardiology service, Dr. Irma Meza evaluated her echocardiogram, which was ordered by hospitalist service. ESTIMATED BLOOD LOSS: 200 cc. CONDITION: The patient tolerated the procedure well. IMPLANTS UTILIZED: A 4-hole 130-degree angle side plate and a 100 mm lag screw. DESCRIPTION OF PROCEDURE: She was subsequently taken to the operating room for the aforementioned procedure and after I obtained C-arm films which verified that I had a satisfactory reduction on both AP and lateral views, the incision was made beginning approximately 2 fingerbreadths below the greater trochanter and extending distally for approximately 5 cm. Skin was incised with a #10 blade followed by a second #10 blade for superficial and deep subcu. The tensor fascia russ was identified and incised followed by splitting the vastus lateralis. I gained access to the lateral cortex of the femur and put a guidewire along the femoral neck for the approximate trajectory of our lag screw. This was done with minimal difficulty and then, was seated to ream over the wire and then passed our 100-mm length lag screw followed by 130-degree side plate, long barrel. After which, we then verified we had satisfactory reduction of the fracture and then proceeded to place our 4.5 fully threaded cortical screws to affix the plate to the femur followed by irrigating the wound copiously. Prior to doing so, I verified on both AP and lateral planes that I had more satisfactory fracture fixation of the fracture fragments. After which, I then proceeded to close the deep and superficial subcu with 0 and 2-0 Vicryl followed by skin alpa for skin. Standard dressings were applied and the patient was then transported off the operating table, to the stretcher, and to the recovery room having tolerated the procedure well. [id number]/[facility] #: [id number] DOMINIQUE
[2017-08-26] MEDS: Enoxaparin(*) 30 MG/0.3 ML SYR SUBCUT SCH (13:49)
[2017-08-26] MEDS ORDERED: Docusate CAP* 100 MG PO SCH (15:00)
[2017-08-26] MEDS ORDERED: Senna/Docusate (NF) TAB PO SCH (15:00)
[2017-08-26] MEDS: Senna TAB PO SCH (15:55)
--- NOTE | 2017-08-26 17:20 | PN ---
Hospitalist Progress Note Date of Service: 08/26/17 Pt seen and examined. Meds and labs reviewed. POD #1: S/P ORIF w/compression screw and side plates. S/P 3 units of PRBC transfusion last night due to sudden decrease of H&H due to post-operative blood loss; reported blood loss intraop is only 200cc. ROS: Unable to provide reliable ROS. However, per , has not had BM since the . PHYSICAL EXAM: GEN APPEARANCE: Awake, not in acute distress, not oriented x3 HEENT: NC/AT, PERRLA, moist oral mucosa, (-) throat erythema NECK: Soft, supple, (-) cervical LAD, (-)JVD HEART: S1S2 WNL, RRR, No MRG CHEST: CTA, BL, GAE, No W/R/R ABD: Soft, ND/NT, NABS 4x Q EXT: No C/C/E SKIN: Warm to touch PSYCH: Unable to perform due to dementia ASSESSMENT AND PLAN: #Anemia, acute: -Likely due to postoperative blood loss -Rise in H&H as expected and/or better -No signs of active blood loss at this time -Continue watchful waiting #Mechanical fall w/left intertrochanteric femoral fracture POD#1: S/P ORIF w/ compression screw and side plates -Pt doing well -Pain appears to be well controlled; defer adjustments with orthopedics -Defer any further plans with ortho -Will await official PT/OT recommendations #PD Dementia: -Will continue watchful waiting -Not currently agitated nor behavioral #COPD, not in acute exacerbation: -Continue watchful waiting -Continue Montelukast #DVTp: -On Lovenox #Dispo: -For PT/OT eval -Defer with Ortho
--- NOTE | 2017-08-26 21:21 | ED ---
Russ Jade Angela, scribed for Dave Coronel MD on 08/24/17 at 1037 . Adult Trauma - HPI Summary HPI Summary: This pt is a 87 y/o female presenting to [facility] via EMS c/o left hip, left elbow , and left sided rib pain s/p fall this morning. Daughter reports the pt got up at approximately 01:30 this morning to go to the bathroom when she fell. Daughter called the paramedics and evaluated her. Paramedics did not find any abnormalities in exam and told the family to call back if pt's condition changed. This morning tried to lift the pt up but she would not stand up. Per daughter, pt has her left leg swollen and has left elbow abrasion. PMHx includes Parkinson's disease, dementia. Pt is not on any anticoagulants. - History of Current Complaint Chief Complaint: EDHipPelvisInjury Stated Complaint: LT LEG PAIN/SWELLING Time Seen by Provider: 08/24/17 10:14 Hx Obtained From: Patient, Family/Structural Engineering Drafting Officer - Daughter and Mechanism of Injury: Fall Ambulatory at the Scene: No Loss of Consciousness: no loss of consciousness Onset/Duration: Started Hours Ago, Traumatic, Still Present Onset of Pain: Hours Current Severity: Moderate Pain Intensity: 6 Pain Scale Used: 0-10 Numeric Location: Extremities - left elbow, left hip, Other - left sided rib pain Aggravating Factor(s): Movement Alleviating Factor(s): Rest Associated Signs & Symptoms: Negative: SOB, Chest Pain, Fever, Nausea/Vomiting, Loss of Consciousness, Significant Blood Loss - Allergy/Home Medications Allergies/Adverse Reactions: Allergies Allergy/AdvReac Type Severity Reaction Status Date / Time dopamine Allergy Unknown Verified 06/14/17 16:12 Reaction Details Home Medications: Home Medications Biotin 1 mg PO DAILY 08/24/17 [History Confirmed 08/24/17] Meclizine TAB* [Antivert 12.5 TAB*] 12.5 - 25 mg PO TID 08/24/17 [History Confirmed 08/24/17] Montelukast Sodium TAB* [Singulair TAB*] 10 mg PO DAILY 08/24/17 [History Confirmed 08/24/17] Multivitamins/Minerals TAB* [Theragran/minerals TAB*] 1 tab PO DAILY 08/24/17 [ History Confirmed 08/24/17] Ropinirole TAB* [Requip TAB*] 0.5 mg PO TID 08/24/17 [History Confirmed 08/24/17 ] Sertraline* [Zoloft*] 25 mg PO TID 08/24/17 [History Confirmed 08/24/17] Venlafaxine TAB (NF) [Effexor TAB (NF)] 75 mg PO QAM 08/24/17 [History Confirmed 08/24/17] Vit C/E/Zn/Coppr/Lutein/Zeaxan [Preservision Areds 2 Softgel] 1 cap PO DAILY [History Confirmed 08/24/17] traMADol TAB* [Ultram*] 50 mg PO Q6HR PRN 08/24/17 [History Confirmed 08/24/17] PMH/Surg Hx/FS Hx/Imm Hx Endocrine/Hematology History: Denies: Hx Diabetes Cardiovascular History: Denies: Hx Hypertension, Hx Pacemaker/ICD Respiratory History: Reports: Hx Chronic Obstructive Pulmonary Disease (COPD) GI History: Reports: Hx Gastroesophageal Reflux Disease Sensory History: Denies: Hx Hearing Aid Neurological History: Reports: Other Neuro Impairments/Disorders - LBP, Parkinson's Psychiatric History: Denies: Hx Panic Disorder - Surgical History Surgery Procedure, Year, and Place: 194 THROAT SURGERY REMOVE CYST; 1944 APPENDIX AND PERITONITIS TREATMENT; 1997 GALLBLADDER; 2006 BOWEL SURGERY [facility]; 2013 SKIN GRAPH BX THROAT Infectious Disease History: No Infectious Disease History: Denies: Traveled Outside the [place] in Last 30 Days - Family History Known Family History: Positive: Cardiac Disease - Mother: fatal [place]. Brother: bypass surgery Negative: Diabetes Family History: Father: throat [place] - Social History Alcohol Use: None Substance Use Type: Reports: None Smoking Status (MU): Never Smoked Tobacco Review of Systems Negative: Fever ENT: Negative Cardiovascular: Negative Respiratory: Negative Musculoskeletal: Other - left hip pain, left elbow pain, left sided rib pain All Other Systems Reviewed And Are Negative: Yes Physical Exam - Summary Physical Exam Summary: VITAL SIGNS: Reviewed. GENERAL: Patient is a well-developed and nourished female who is lying comfortable in the stretcher. Patient is not in any acute respiratory distress. HEAD AND FACE: No signs of trauma. No ecchymosis, hematomas or skull depressions. No sinus tenderness. EYES: PERRLA, EOMI x 2, No injected conjunctiva, no nystagmus. EARS: Hearing grossly intact. Ear canals and tympanic membranes are within normal limits. MOUTH: Oropharynx within normal limits. NECK: Supple, trachea is midline, no adenopathy, no JVD, no carotid bruit, no c- spine tenderness, neck with full ROM. CHEST: Symmetric, no tenderness at palpation LUNGS: Clear to auscultation bilaterally. No wheezing or crackles. CVS: Regular rate and rhythm, S1 and S2 present, no murmurs or gallops appreciated. ABDOMEN: Soft, non-tender. No signs of distention. No rebound no guarding, and no masses palpated. Bowel sounds are normal. EXTREMITIES: no edema, no cyanosis or clubbing. Pt is tender in the left rib area. She is tender in the left hip and left elbow. NEURO: Alert and oriented x 3. No acute neurological deficits. Speech is normal and follows commands. SKIN: Dry and warm Triage Information Reviewed: Yes Vital Signs On Initial Exam: Initial Vitals Temp Pulse Resp BP Pulse Ox 97.2 F 83 20 146/77 99 08/24/17 10:00 08/24/17 10:00 08/24/17 10:00 08/24/17 10:00 08/24/17 10:00 Vital Signs Reviewed: Yes Diagnostics - Vital Signs Vital Signs Temp Pulse Resp BP Pulse Ox 08/24/17 10:00 97.2 F 83 20 146/77 99 - Laboratory Result Diagrams: 08/24/17 11:49 08/24/17 11:49 Lab Statement: Any lab studies that have been ordered have been reviewed, and results considered in the medical decision making process. - Radiology Chest XR Xray Interpretation: Positive (See Comments) - IMPRESSION: Hyperinflation with chronic interstitial change. Dr. Coronel has reviewed this radiology report. Radiology Interpretation Completed By: Radiologist Left hip and pelvis XR Xray Interpretation: Positive (See Comments) - IMPRESSION: Intratrochanteric fracture left femur. Dr. Coronel has reviewed this radiology report. Radiology Interpretation Completed By: Radiologist Left elbow XR Xray Interpretation: No Acute Changes - IMPRESSION: No acute fracture. Dr. Coronel has reviewed this radiology report. Radiology Interpretation Completed By: Radiologist Left ribs XR Xray Interpretation: No Acute Changes - IMPRESSION: No acute rib fracture is seen. Dr. Coronel has reviewed this radiology report. Radiology Interpretation Completed By: Radiologist Re-Evaluation - Re-Evaluation First Eval Re-Evaluation Time: 13:01 Comment: I reviewed the XR and lab results with the family. Plan for admission was discussed. Adult Trauma Course/Dx - Course Assessment/Plan: Pt is a 87 y/o female presenting to [facility] via EMS c/o left hip , left elbow, and left sided rib pain s/p fall this morning. Daughter reports the pt got up at approximately 01:30 this morning to go to the bathroom when she fell. Daughter called the paramedics and evaluated her. Paramedics did not find any abnormalities in exam and told the family to call back if pt's condition changed. This morning tried to lift the pt up but she would not stand up. Per daughter, pt has her left leg swollen and has left elbow abrasion. Test results without any significant abnormalities except for normochromic normocytic anemia, glucose of 126. Chest XR impression: Hyperinflation with chronic interstitial change. Left elbow XR impression: No acute fracture. Left sided ribs XR impression: No acute rib fracture is seen. Left hip and pelvis XR shows intratrochanteric fracture left femur. Since the pt has an intratrochanteric fracture left femur, I discussed the case with Dr. Sharif, orthopedist, who will consult on the pt and recommends admission to the medical team. I discussed with Dr. Rosado, hospitalist, who accepted the pt for admission. In the ED course the pt was given IV fluids and morphine for the pain. She is hemodynamically stable. I did not do a head CT or neck CT since the pt does not complain of neck pain or headache. I discussed all the findings and test results with the patient's family. - Diagnoses Provider Diagnoses: Intertrochanteric fracture of left femur - Physician Notifications Discussed Care Of Patient With: Nasir Sharif Time Discussed With Above Provider: 12:05 Instructed by Provider To: Other - I discussed pt care with Dr. Sharif, orthopedist, who will consult on the pt and recommends admission to the hospitalist. [12:50] I discussed with Dr. Rosado, hospitalist, who has accepted the pt for admission. Discharge - Sign-Out/Discharge Documenting (check all that apply): Discharge/Admit/Transfer - Admit - Discharge Plan Condition: Stable Disposition: ADMITTED TO [facility] Referrals: Tito Jay MD [Primary Care Provider] - The documentation as recorded by the Russ muñoz Angela accurately reflects the service I personally performed and the decisions made by , Dave Coronel MD.
[2017-08-27 05:51] LABS: ABS Basophils 0 10^3/ul (0-0.2); ABS Eosinophils 0 10^3/ul (0-0.6); ABS Lymphocytes 0.7 10^3/ul (1.0-4.8); ABS Monocytes 1.1 10^3/ul (0-0.8); ABS Neutrophils 6.7 10^3/ul (1.5-7.7); ABS Nucleated RBC 0 10^3/ul; Eosinophil % 0.1 % (0-6); Hematocrit 24 % (35-47); Hemoglobin 8.1 g/dl (12.0-16.0); Lymphocyte % 8.7 % (25-47); Mean Corpuscular HGB Conc 34 g/dl (31-36); Mean Corpuscular Hemoglobin 31 pg (27-31); Mean Corpuscular Volume 90 fL (80-97); Mean Platelet Volume 8.2 um3 (7.4-10.4); Nucleated Red Blood Cells % 0; Platelet Count 106 10^3/ul (150-450); Red Blood Count 2.65 10^6/ul (4.0-5.4); Red Cell Distribution Width 17 % (10.5-15); White Blood Count 8.5 10^3/ul (3.5-10.8)
[2017-08-27 06:09] LABS: EGFR Non-African American 102.4 (>60)
--- NOTE | 2017-08-27 07:41 | PN ---
Hospitalist Progress Note Date of Service: 08/27/17 Saw today's labs with sudden drop of H&H. Re-ordered CBC to check for accuracy since there has been no documented report of bleeding. Sent for type and screen and will re-transfuse if CBC shown to have consistent drop.
[2017-08-27 08:12] LABS: ABS Basophils 0 10^3/ul (0-0.2); ABS Eosinophils 0 10^3/ul (0-0.6); ABS Lymphocytes 0.8 10^3/ul (1.0-4.8); ABS Monocytes 1.1 10^3/ul (0-0.8); ABS Neutrophils 6.8 10^3/ul (1.5-7.7); ABS Nucleated RBC 0 10^3/ul; Eosinophil % 0.1 % (0-6); Hematocrit 24 % (35-47); Hemoglobin 8.2 g/dl (12.0-16.0); Lymphocyte % 9.6 % (25-47); Mean Corpuscular HGB Conc 34 g/dl (31-36); Mean Corpuscular Hemoglobin 31 pg (27-31); Mean Corpuscular Volume 89 fL (80-97); Nucleated Red Blood Cells % 0; Platelet Count 111 10^3/ul (150-450); Red Blood Count 2.68 10^6/ul (4.0-5.4); Red Cell Distribution Width 17 % (10.5-15); White Blood Count 8.7 10^3/ul (3.5-10.8)
[2017-08-27] MEDS: HYDROcodone/ACETAMIN 5-325 MG* 1 TAB PO PRN ×3 (09:52→20:22)
[2017-08-27] MEDS: Multivitamins/Minerals TAB PO SCH (09:59)
[2017-08-27] MEDS: Sertraline* 25 MG TAB PO SCH ×3 (09:59→20:22)
[2017-08-27] MEDS: Montelukast Sodium TAB* 10 MG PO SCH (10:02)
[2017-08-27] MEDS: Ropinirole TAB* 0.5 MG TAB PO SCH ×3 (10:03→20:22)
[2017-08-27] MEDS: Venlafaxine EXT RELEASE CAP* 75 MG PO SCH (10:08)
[2017-08-27] MEDS: Meclizine TAB* 12.5 MG PO SCH ×3 (10:08→20:22)
[2017-08-27] MEDS: Senna TAB PO SCH (10:11)
[2017-08-27] MEDS: Docusate LIQ* 100 MG/10 ML UDC PO SCH (10:11)
--- NOTE | 2017-08-27 15:53 | PN ---
Hospitalist Progress Note Date of Service: 08/27/17 Pt seen and examined. Meds and labs reviewed. As previously documented, a repeat H&H done showed consistency of slight H&H drop. 1 unit of PRBC ordered. Some of this drop is likely dilutional given she is urinating well and was in the positives of I/Os at around 4L with slight development of BLLE edema (+)1. IVF was D/Cd as transfusion was ordered. Lovenox held. Continued SCD. ROS: Unable to provide reliable 14 point ROS PHYSICAL EXAM: GEN APPEARANCE: Awake, not in acute distress, not oriented x3 HEENT: NC/AT, PERRLA, moist oral mucosa, (-) throat erythema NECK: Soft, supple, (-) cervical LAD, (-)JVD HEART: S1S2 WNL, RRR, No MRG CHEST: CTA, BL, GAE, No W/R/R ABD: Soft, ND/NT, NABS 4x Q EXT: No C/C/BLLE (+)1 SKIN: Warm to touch PSYCH: Unable to perform due to dementia ASSESSMENT AND PLAN: #Anemia, acute: -Likely due to postoperative blood loss -Rise in H&H as expected and/or better -No signs of active blood loss at this time -As discussed, some of H&H drop is likely dilutional, hence, D/Cd IVF and will place pt on saline lock and insert a cline with uremeter. -Lovenox held -Continue watchful waiting #Mild BLLE: -Please see discussion above #Mechanical fall w/left intertrochanteric femoral fracture POD#2: S/P ORIF w/ compression screw and side plates -Pt doing well -Pain appears to be well controlled; defer adjustments with orthopedics -Defer any further plans with ortho -Will await official PT/OT recommendations #PD Dementia: -Will continue watchful waiting -Not currently agitated nor behavioral #COPD, not in acute exacerbation: -Continue watchful waiting -Continue Montelukast #DVTp: -Held Lovenoxconsider re-starting in 1-2 days if H&H is stable and no clinical signs of bleeding -Continue SCDs #Dispo: -For STR placement
[2017-08-28 05:49] LABS: Hematocrit 28 % (35-47); Hemoglobin 9.7 g/dl (12.0-16.0); Mean Corpuscular HGB Conc 35 g/dl (31-36); Mean Corpuscular Hemoglobin 31 pg (27-31); Mean Corpuscular Volume 89 fL (80-97); Mean Platelet Volume 8.3 um3 (7.4-10.4); Platelet Count 135 10^3/ul (150-450); Red Blood Count 3.09 10^6/ul (4.0-5.4); Red Cell Distribution Width 17 % (10.5-15)
[2017-08-28 06:08] LABS: EGFR Non-African American 104.6 (>60)
[2017-08-28] MEDS ORDERED: Sodium Phosphate INJ* 15 MMOLE in NS 0.9% 250 ML* 250 ML IVPB ONE (09:30)
[2017-08-28] MEDS: Meclizine TAB* 12.5 MG PO SCH ×2 (09:52→14:51)
[2017-08-28] MEDS: Venlafaxine EXT RELEASE CAP* 75 MG PO SCH (09:52)
[2017-08-28] MEDS: Acetaminophen TAB* 325 MG PO PRN (09:54)
[2017-08-28] MEDS: Ropinirole TAB* 0.5 MG TAB PO SCH ×2 (09:54→14:51)
[2017-08-28] MEDS: Sertraline* 25 MG TAB PO SCH ×2 (09:55→14:51)
[2017-08-28] MEDS: Senna TAB PO SCH (09:57)
[2017-08-28] MEDS: Montelukast Sodium TAB* 10 MG PO SCH (09:58)
[2017-08-28] MEDS: Docusate LIQ* 100 MG/10 ML UDC PO SCH (10:01)
[2017-08-28] MEDS: Multivitamins/Minerals TAB PO SCH (10:01)
--- NOTE | 2017-08-28 13:54 | PN ---
Hospitalist Progress Note Date of Service: 08/28/17 Pt seen and examined. Meds and labs reviewed. ROS: Denied ELIAS/dizziness, F/C, N/V, CP, SOB, increased cough, sputum production , abd pain, diarrhea, constipation, dysuria, myalgias, arthralgias, throat pain , and new skin lesions. The rest of the 14 point ROS are unremarkable. PHYSICAL EXAM: GEN APPEARANCE: Awake, not in acute distress, not oriented x3 HEENT: NC/AT, PERRLA, moist oral mucosa, (-) throat erythema NECK: Soft, supple, (-) cervical LAD, (-)JVD HEART: S1S2 WNL, RRR, No MRG CHEST: CTA, BL, GAE, No W/R/R ABD: Soft, ND/NT, NABS 4x Q EXT: No C/C/BLLE SKIN: Warm to touch PSYCH: Unable to perform due to dementia ASSESSMENT AND PLAN: #Anemia, stable: -Acute decrease likely due to postoperative blood loss with some dilutional anemia -Continue SCDs -Consider re-starting Lovenox in AM if H&H remain stable and no clinical signs of significant bleed -Continue watchful waiting #Mechanical fall w/left intertrochanteric femoral fracture POD#3: S/P ORIF w/ compression screw and side plates -Pt doing well -Pain appears to be well controlled; defer adjustments with orthopedics -Defer any further plans with ortho -Will await official PT/OT recommendations #PD Dementia: -Will continue watchful waiting -Not currently agitated nor behavioral #COPD, not in acute exacerbation: -Continue watchful waiting -Continue Montelukast #DVTp: -Held Lovenox consider it in AM if H&H is stable and no clinical signs of bleeding -Continue SCDs #Dispo: -For STR placement
[2017-08-28 16:03] VITALS: BP 90/48
[2017-08-28] MEDS ORDERED: NS 0.9% 1000 ML* 1,000 ML IV SCH (16:15)
[2017-08-28] MEDS ORDERED: Morphine VIAL* 4 MG/ML VIAL (1 ml vial) IV PRN (16:55)
[2017-08-28] MEDS ORDERED: Morphine VIAL* 4 MG/ML VIAL (1 ml vial) IV ONE (16:56)
[2017-08-28] MEDS ORDERED: Enoxaparin(*) 60 MG/0.6 ML SYR SUBCUT SCH (17:00)
[2017-08-28] MEDS ORDERED: Iohexol 350* (CONTRAST) 500 ML MDV IV ONE (17:06)
[2017-08-28] MEDS ORDERED: Atropine SYRINGE* 0.1 MG/ML 10 ML SYRINGE (1 MG) IV STA (17:07)
--- NOTE | 2017-08-28 17:10 | PN ---
Hospitalist Progress Note Date of Service: 08/28/17 CAT NOTE CAT called on an 87yo F with PMH of dementia, Parkinson's disease, GERD, COPD, DNR/DNI, admitted 08/24/17 after a fall, found to have left hip fracture. She underwent ORIF 08/25. She was last seen at her baseline around 16:05. RN heard moaning and found patient lethargic, barely responsive, reason why CAT was called. On my arrival, patient is a cachectic frail elderly lady, lying in bed, moaning , with eyes open, but not responsive to voice or touch. Initial BP was 70/40 and IVF bolus was initiated under pressure, with subsequent SBP in the 50s. Pulse was tachycardic and thready at the carotids, and later on was slow in the 50s. There is significant JVD, reportedly new. CVS: distant sounds, S1 and S2+. Chest : BS+ bilaterally with no added sounds. Extremities: + cyanosis. Moderate to large hematoma to inner left thigh. EKG showed NSR with RBBB, new from prior EKG 08/24. Suspect this is likely massive PE. Care was transferred to patient's attending physician Dr Lopez to continue her management.
--- NOTE | 2017-08-29 01:53 | DS ---
SUMMARY: DATE OF ADMISSION: DATE OF : 08/28/17 SUMMARY DIAGNOSES: As follows: 1. Cardiopulmonary arrest. 2. New-onset right bundle branch block. 3. Status post mechanical fall with left intertrochanteric femoral fracture, status post open reduction internal fixation with compression screw and side plates, complicated with postoperative bleeding and dilutional anemia. HISTORY OF PRESENT ILLNESS/HOSPITAL COURSE: The patient was an 87-year-old lady with history of dementia, Parkinson's disease, and GERD, who experienced a mechanical fall with hip pain and inability to ambulate and transfer, and was subsequently admitted with a diagnosis of left intertrochanteric femoral fracture and underwent ORIF with compression screw and side plates. On 08/25/17, I first saw Ms. Ascencio and evaluated her preoperatively along with an echocardiogram that was ordered upon her admission , which was interpreted by Dr. Meza. Per Dr. Meza at that time, she did not have any active cardiac abnormalities, which was consistent with the preoperative evaluation of a low cardiac risk with RCRI =1 for a high risk surgical procedure. She had done well intraoperatively, however, postoperatively she was noted to have some postoperative bleeding and development of hematoma at the site of surgery and hence her DVT prophylaxis was momentarily halted. Dr. Sharif was informed of this as well, who agreed with the above. A few hours later, after I had seen her on 08/28/17 in the morning thereof, I was called to reevaluate the patient given the patient was hypotensive and at that time bradycardic. She had then been given boluses of fluids as well as 1 dose of atropine and was given 50 mg subcu x1 of Lovenox for a new right bundle branch block presumably due to a possible PE. CT angio was also ordered stat; however, she had prior to the test being done. The patient's was informed of the limited options and the high risk of other therapeutic options if this proved to be PE such as surgical and medical embolectomy in comparison to just full anticoagulation given her recent surgery. A few minutes later after I had spoken with the patient's on the phone, I was called to reevaluate the patient in [place] only to find that the patient did not have any pulse in both the carotid artery, brachial, radial, femoral, as well as pedal pulses were all absent. She also had absent breath sounds and spontaneous breathing and no heart rate could be heard and her pupils were unreactive to light and hence she was documented to have at around 5 :42 p.m. on 08/28/17. The patient's has been informed by my person and Dr. Sharif will be informed by nursing staff. [id number]/[facility] #: [id number] MTDD
== END 2017-08-28 17:42 | disposition expired | DRG 481 ==
LOC: ED 09:52 → SSU 14:33
PROVIDERS: ADMIT Internal Medicine; ATTEND Student in an Organized Health Care Education/Training Program
PROC: 0QS734Z Reposition Left Upper Femur with Internal Fixation Device, Percutaneous Approach (ICD-10-PCS; principal; 2017-08-25 10:30)
PROC: 30233N1 Transfusion of Nonautologous Red Blood Cells into Peripheral Vein, Percutaneous Approach (ICD-10-PCS; 2017-08-27)
DX: S72.142A Displaced intertrochanteric fracture of left femur, initial encounter for closed fracture (principal); D62 Acute posthemorrhagic anemia; L76.32 Postprocedural hematoma of skin and subcutaneous tissue following other procedure; W18.39XA Other fall on same level, initial encounter; G20 Parkinson's disease; F02.80 Dementia in other diseases classified elsewhere, unspecified severity, without behavioral disturbance, psychotic disturbance, mood disturbance, and anxiety; K21.9 Gastro-esophageal reflux disease without esophagitis; J44.9 Chronic obstructive pulmonary disease, unspecified; I46.9 Cardiac arrest, cause unspecified; Z66 Do not resuscitate; I08.2 Rheumatic disorders of both aortic and tricuspid valves; I27.20 Pulmonary hypertension, unspecified; I45.10 Unspecified right bundle-branch block; Y92.003 Bedroom of unspecified non-institutional (private) residence as the place of occurrence of the external cause; Z79.899 Other long term (current) drug therapy; Z82.49 Family history of ischemic heart disease and other diseases of the circulatory system; Z88.8 Allergy status to other drugs, medicaments and biological substances
CPT/HCPCS: 36415; 71045; 76000; 80053; 81003; 81015; 82550; 83735; 84100; 85025; 85027; 85610; 86078; 86140; 86850; 86900; 86901; 86922; 93005; 93306; 99284; A9270-GY; G8978-GP-CM; G8979-GP-CJ; J0461; J0690; J1100; J1240; J1650; J1885; J2060; J2250; J2270; J2704; J3010; P9040